=== PATIENT | male | born 1970 | race Caucasian/White ===

== ENCOUNTER 2016-10-10 10:15 | Emergency (ER) | payer BC, OTHER ==
[~2016-10-10] VITALS: Ht 182.9 cm; Wt 71.8 kg
[~2016-10-10 10:15] MED LIST: DRV65 PO; FLX10 PO; IBUP600T44 PO
[2016-10-10 10:21] VITALS: TEMP 36.7; Ht 182.9 cm; Wt 71.8 kg
[2016-10-10 11:42] VITALS: BP 124/100; PULSE 71; O2SAT 100
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
== END 2016-10-10 12:05 | disposition home or self-care (01) ==
LOC: C.EDB 10:16 → C.EDA 12:05
DX: S43.101A Unspecified dislocation of right acromioclavicular joint, initial encounter (principal); V18.0XXA Pedal cycle driver injured in noncollision transport accident in nontraffic accident, initial encounter; F17.200 Nicotine dependence, unspecified, uncomplicated